=== PATIENT | female | born 1995 | race Two or more races ===

== ENCOUNTER 2022-11-27 07:43 | Emergency (ER) | payer MEDICAID ==
[~2022-11-27] VITALS: Ht 172.7 cm; Wt 90.0 kg
[2022-11-27 08:10] VITALS: BP 146/95
[2022-11-27] MEDS ORDERED: DexAMETHasone SOD PHOS 10MG/1ML VIAL INJ IM ONE (08:15)
[2022-11-27] MEDS ORDERED: KETOROLAC TROMETH 60MG/2ML VIAL IM ONE (08:15)
[2022-11-27] MEDS ORDERED: PENICILLIN G BENZ 1200000 UNITS/2 ML SYRG IM ONE (09:00)
== END 2022-11-27 09:16 | disposition home or self-care (01) ==
LOC: ER 07:43
DX: J02.0 Streptococcal pharyngitis (principal); Z88.8 Allergy status to other drugs, medicaments and biological substances; Z20.822 Contact with and (suspected) exposure to COVID-19
CPT/HCPCS: 36415; 87426; 87880; 96372; 99284; J0561; J1100; J1885